=== PATIENT | female | born 1990 | race Caucasian/White ===

== ENCOUNTER 2016-12-09 01:25 | Emergency (ER) | payer SELFPAY ==
[~2016-12-09] VITALS: Ht 162.6 cm; Wt 63.5 kg
[~2016-12-09 01:25] MED LIST: BACTRIM DS 8001 TA1 PO; CIPRO250 M2 PO; CIPRO500 M1 PO; CIPRO500 MG/5 M PO; PERCOCET 325 MG1 TA4 PO; PRENATAL1 TA1 PO; XANAX0.25 M1 PO; XANAX0.25 MG PO
[2016-12-09 01:39] VITALS: BP 116/78
--- NOTE | 2016-12-09 01:47 | NUR ---
Patient to bed 07.
--- NOTE | 2016-12-09 01:54 | NUR ---
26 Y/O F W/C/O ABD PAIN, HEADACHES, FEVER, CHILLS AND VAGINAL DISCHARGE X 2 DAYS. PT'S LMP WAS 07/2017, PT STATES WAS AND TOOK PILLS BACK ON 09/2016 BUT NEVER FOLLOW UP WITH PMD. PT VERBALIZED THAT DOES NOT WISH TO KEEP BABY IF STILL . S/S OF PAIN NOTED ER MD NOTIFIED.
--- NOTE | 2016-12-09 02:07 | NUR ---
Dr. Garcia evaluating patient at bedside.
[2016-12-09] MEDS ORDERED: NACL 0.9% 2,000 ML IV ONE (02:15)
[2016-12-09] MEDS ORDERED: MORPHINE SULFATE 4 MG/ML SYR IVP ONE (02:15)
[2016-12-09] MEDS ORDERED: ACETAMINOPHEN EXTRA STRENGTH 500 MG TAB PO ONE (02:15)
--- NOTE | 2016-12-09 02:15 | NUR ---
Pelvic exam performed by DR CLARK with ME at bedside for entire examination. Patient tolerated PELVIC EXAM WELL. Patient assisted to position of comfort after examination.
--- NOTE | 2016-12-09 03:00 | NUR ---
US at bedside.
[2016-12-09] MEDS ORDERED: cefTRIAXone 1,000 MG VIAL ONE (04:08)
[2016-12-09] MEDS ORDERED: cefTRIAXone 250 MG in LIDOCAINE 1% ED 0.9 ML IM ONE (04:55)
[2016-12-09 05:27] VITALS: BP 102/63
--- NOTE | 2016-12-09 05:27 | NUR ---
Patient discharged with v/s stable. Written and verbal after care instructions given and explained. Patient alert, oriented and verbalized understanding of instructions. Ambulatory with steady gait. All questions addressed prior to discharge. ID band removed. Patient advised to follow up with PMD OR OBGYN TOMORROW OR NEXT AVAILABLE APPT OR RETURN TO ER IF CONDITION WORSENS. Rx of FLAGYL, VITAMINS, AND ACETAMINOPHEN given. Patient educated on indication of medication including possible reaction and side effects. Opportunity to ask questions provided and answered.
== END 2016-12-09 05:27 | disposition home or self-care (01) ==
LOC: MED 01:25
DX: O20.0 Threatened abortion (principal); O23.592 Infection of other part of genital tract in pregnancy, second trimester; N76.0 Acute vaginitis; B96.89 Other specified bacterial agents as the cause of diseases classified elsewhere; Z3A.19 19 weeks gestation of pregnancy
CPT/HCPCS: 36415; 76817; 80053; 81002; 81025; 83605; 84702; 85025; 85610; 86900; 86901; 87040; 87210; 87491; 96361; 96365; 96372; 96375; 99285; J0696; J2001; J2270; J7030; J7060; Q0092

== ENCOUNTER 2019-09-15 08:35 | Emergency (ER) | payer MEDICAID ==
[~2019-09-15] VITALS: Ht 162.6 cm; Wt 65.9 kg
[~2019-09-15 08:35] MED LIST changes: +ACET-5636 PO; +ALPR0.253 PO; -BACTRIM DS 8001 TA1 PO; +CIPR250T3 PO; -CIPRO250 M2 PO; -CIPRO500 M1 PO; -CIPRO500 MG/5 M PO; -PERCOCET 325 MG1 TA4 PO; -PRENATAL1 TA1 PO; +SULF-59 PO; -XANAX0.25 M1 PO; -XANAX0.25 MG PO
[2019-09-15 08:58] VITALS: BP 126/89
--- NOTE | 2019-09-15 09:23 | NUR ---
AAO X4 29 YR OLD FEMALE BIB SELF c/o sudden onset of heavy vag bleeding during coitus last night; again last night and one more this am---pt adds she had been spotting 2 days prior feels pain to suprapubic area radiating lower back lmp 08/26/2019 hx--denies rx-- control implant left arm
[2019-09-15 11:00] VITALS: BP 130/76
--- NOTE | 2019-09-15 11:00 | NUR ---
Patient discharged with v/s stable. Written and verbal after care instructions given and explained. Patient alert, oriented and verbalized understanding of instructions. Ambulatory with steady gait. All questions addressed prior to discharge. ID band removed. Patient advised to follow up with PMD. Rx of Motrin, Provera given. Patient educated on indication of medication including possible reaction and side effects. Opportunity to ask questions provided and answered.
== END 2019-09-15 11:00 | disposition home or self-care (01) ==
LOC: MED 08:35
DX: N93.8 Other specified abnormal uterine and vaginal bleeding (principal); F17.200 Nicotine dependence, unspecified, uncomplicated; Z88.8 Allergy status to other drugs, medicaments and biological substances; Z79.899 Other long term (current) drug therapy
CPT/HCPCS: 81002; 81025; 99283